=== PATIENT | male | born 1955 | race Caucasian/White ===

== ENCOUNTER 2018-09-05 07:10 | Day surgery (SDC) | payer OTHER ==
[~2018-09-05] VITALS: Ht 177.8 cm; Wt 92.1 kg
[~2018-09-05 07:10] MED LIST: ALLO10TA PO; COUM2TAB22 PO; FOLI5INJ2 SC; HYDR25TAB PO; K-TA10TA2 PO; LISI-538 PO; NS 1,000 ML IV ONE; SIMV40TA2 PO; TRUS1SOL OU; WARF4TAB51 PO
[2018-09-05] MEDS ORDERED: PROPOFOL 200 MG/20 ML VIAL As Ordered ONE (07:14)
[2018-09-05] MEDS ORDERED: LIDOCAINE 2% INJ 100 MG/5 ML SDV (FOR ANES.) As Ordered ONE (07:14)
[2018-09-05] MEDS ORDERED: LOVE1INJ SC (07:40)
--- NOTE | 2018-09-05 08:25 | ROOR ---
Patient Name: Rickie Sanders Procedure Date: 09/05/2018 8:08 AM Date of : 1955 Age: 62 Room: [facility] Gender: Male Note Status: Finalized Procedure: Colonoscopy Indications: Screening for colorectal malignant neoplasm Providers: DO Curt Childers MD: [facility], Admin. Requesting Provider: Medicines: Propofol per Anesthesia Complications: No immediate complications. Procedure: Pre-Anesthesia Assessment: - Prior to the procedure, a History and Physical was performed, and patient medications and allergies were reviewed. The patient is competent. The risks and benefits of the procedure and the sedation options and risks were discussed with the patient. All questions were answered and informed consent was obtained. Patient identification and proposed procedure were verified by the physician, the nurse, the anesthesiologist and the instrument technician in the endoscopy suite. Mental Status Examination: alert and oriented. Airway Examination: normal oropharyngeal airway and neck mobility. Respiratory Examination: clear to auscultation. CV Examination: normal. Prophylactic Antibiotics: The patient does not require prophylactic antibiotics. Prior Anticoagulants: The patient has taken Lovenox (enoxaparin). ASA Grade Assessment: II - A patient with mild systemic disease. After reviewing the risks and benefits, the patient was deemed in satisfactory condition to undergo the procedure. The anesthesia plan was to use monitored anesthesia care (MAC). Immediately prior to administration of medications, the patient was re-assessed for adequacy to receive sedatives. The heart rate, respiratory rate, oxygen saturations, blood pressure, adequacy of pulmonary ventilation, and response to care were monitored throughout the procedure. The physical status of the patient was re-assessed after the procedure. The Colonoscope was introduced through the anus and advanced to the cecum, identified by appendiceal orifice and ileocecal valve. The colonoscopy was performed without difficulty. The patient tolerated the procedure well. Findings: The perianal exam findings include non-thrombosed internal hemorrhoids and internal hemorrhoids (Grade I). The exam was otherwise without abnormality on direct and retroflexion views. Impression: - Non-thrombosed internal hemorrhoids and internal hemorrhoids (Grade I) found on perianal exam. - The examination was otherwise normal on direct and retroflexion views. - No specimens collected. Recommendation: - Patient has a contact number available for emergencies. The signs and symptoms of potential delayed complications were discussed with the patient. Return to normal activities tomorrow. Written discharge instructions were provided to the patient. - Repeat colonoscopy in 5-10 years for screening purposes. - Return to my office PRN. Mike Ventura DO 09/05/2018 8:25:18 AM Electronically signed by Mike Ventura DO Number of Addenda: 0 Note Initiated On: 09/05/2018 8:08 AM Estimated Blood Loss: Estimated blood loss: none.
[2018-09-05 08:40] VITALS: BP 113/82
== END 2018-09-05 08:55 | disposition home or self-care (01) ==
LOC: M OPP 07:10
PROVIDERS: ATTEND Surgery
DX: K64.0 First degree hemorrhoids (principal); Z12.11 Encounter for screening for malignant neoplasm of colon